=== PATIENT | male | born 1950 | race Caucasian/White ===

== ENCOUNTER 2018-10-27 22:27 | Emergency (ER) | payer MEDICARE, OTHER ==
--- NOTE | 2018-10-27 22:30 | ERPHSYRPT ---
- History of Present Illness Time Seen by Provider: 10/27/18 22:30 Historian: patient, family Exam Limitations: no limitations Physician History: 68 y/o white male with h/o atrial fibrillation on eliquis presents with central abdominal pain with radiation to bilat upper and lower quadrants. pain described as sharp pressure. did go into his back once. pain began at 1430. assoc intermittently with nausea. no vomiting or diarrhea. no prior abd surgeries. pt has had normal colonoscopies in past is scheduled for another one in early November 2018. never had this pain before. Timing/Duration: today, intermittent, improved Activities at Onset: none Quality: pressure, sharpness Abdominal Pain Onset Location: generalized abdomen Pain Radiation: RUQ, LUQ, RLQ, LLQ, back Severity of Pain-Max: moderate Severity of Pain-Current: mild Modifying Factors: Improves With: nothing Associated Symptoms: nausea, No chest pain, No diarrhea, No vomiting, No weakness Previous symptoms: no prior history Allergies/Adverse Reactions: No Known Drug Allergies Allergy (Unverified 10/27/18 22:50) Home Medications: Amlodipine Besylate 5 mg PO DAILY 10/27/18 [History] Apixaban [Eliquis] 5 mg PO BID 10/27/18 [History] Dronedarone HCl [Multaq] 400 mg PO BID 10/27/18 [History] LORazepam [Lorazepam] 1 mg PO HS 10/27/18 [History] Nebivolol HCl 5 MG [Bystolic 5 MG] 5 mg PO DAILY 10/27/18 [History] PANTOPRAZOLE 40 mg Tablet [Protonix 40MG Tablet] 40 mg PO DAILY 10/27/18 [ History] Pregabalin [Lyrica 150Mg] 150 mg PO BID 10/27/18 [History] Simvastatin 10 mg PO DAILY 10/27/18 [History] - Review of Systems Constitutional: No Symptoms Eyes: No Symptoms Ears, Nose, & Throat: No Symptoms Respiratory: No Symptoms Cardiac: No Symptoms Abdominal/Gastrointestinal: Abdominal Pain (generalized ), Nausea, No Vomiting, No Diarrhea, No Constipation Genitourinary Symptoms: No Symptoms, No Dysuria, No Frequency, No Hematuria Musculoskeletal: No Symptoms Skin: No Symptoms Neurological: No Symptoms Psychological: No Symptoms Endocrine: No Symptoms Hematologic/Lymphatic: No Symptoms Immunological/Allergic: No Symptoms All Other Systems: Reviewed and Negative - Past Medical History Pertinent Past Medical History: Yes Neurological History: No Pertinent History ENT History: No Pertinent History Cardiac History: Arrhythmia Respiratory History: No Pertinent History Endocrine Medical History: No Pertinent History Musculoskeletal History: No Pertinent History GI Medical History: No Pertinent History History: No Pertinent History Psycho-Social History: No Pertinent History Male Reproductive Disorders: No Pertinent History - Past Surgical History Neuro Surgical History: No Pertinent History Cardiac: No Pertinent History Respiratory: No Pertinent History Gastrointestinal: No Pertinent History Genitourinary: No Pertinent History Musculoskeletal: No Pertinent History Male Surgical History: No Pertinent History - Nursing Vital Signs Nursing Vital Signs: Initial Vital Signs Temperature 98.2 F 10/27/18 22:42 Pulse Rate 80 10/27/18 22:42 Respiratory Rate 18 10/27/18 22:42 Blood Pressure 151/72 10/27/18 22:42 Pain Scale Pain Intensity 3 - Physical Exam General Appearance: mild distress, alert, anxiety Eye Exam: PERRL/EOMI, eyes nml inspection Ears, Nose, Throat Exam: normal ENT inspection, moist mucous membranes Neck Exam: normal inspection, non-tender, supple, full range of motion Respiratory Exam: normal breath sounds, airway intact, No chest tenderness, No lungs clear, No respiratory distress Cardiovascular Exam: regular rate/rhythm, normal heart sounds, normal peripheral pulses Gastrointestinal/Abdomen Exam: soft, normal bowel sounds, tenderness (mild generalized.), No guarding, No rebound Rectal Exam: not done Back Exam: normal inspection, normal range of motion, No CVA tenderness, No vertebral tenderness Extremity Exam: normal inspection, normal range of motion, pelvis stable Neurologic Exam: alert, oriented x 3, cooperative, 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 nml as tested Skin Exam: normal color, warm, dry Lymphatic Exam: No adenopathy SpO2 Interpretation: normal O2 Delivery: Room Air - Course Nursing assessment & vital signs reviewed: Yes Ordered Tests: Active Orders 24 hr Category Date Time Status EKG-ER Only STAT Care 10/27/18 22:41 Active IV Insertion STAT Care 10/27/18 22:40 Active ABDOMEN AND PELVIS W/0 CONTRAS [CT] Stat Exams 10/27/18 22:41 Taken AMYLASE Stat Lab 10/27/18 23:25 Completed CBC W DIFF Stat Lab 10/27/18 23:25 Completed CMP Stat Lab 10/27/18 23:25 Completed LIPASE Stat Lab 10/27/18 23:25 Completed Lactic Acid Stat Lab 10/27/18 23:25 Results Manual Differential NC Stat Lab 10/27/18 23:25 Completed PT INR [PROTIME WITH INR] Stat Lab 10/27/18 23:25 Completed TROPONIN Q3H Lab 10/27/18 23:25 Completed TROPONIN Q3H Lab 10/28/18 01:45 Ordered TROPONIN Q3H Lab 10/28/18 04:45 Ordered TROPONIN Q3H Lab 10/28/18 07:45 Ordered TROPONIN Q3H Lab 10/28/18 10:45 Ordered UA W/RFX UR CULTURE Stat Lab 10/27/18 22:41 Uncollected Medication Summary Discontinued Medications Generic Name Dose Route Start Last Admin Trade Name Freq PRN Reason Stop Dose Admin Hydromorphone HCl 0.5 mg 10/27/18 22:45 10/27/18 23:38 Hydromorphone 1 Mg/Ml Ampule IV 10/27/18 22:46 0.5 mg STAT ONE Administration Hydromorphone HCl Confirm 10/27/18 23:35 Hydromorphone 1 Mg/Ml Ampule Administered 10/27/18 23:36 Dose 1 mg .ROUTE .STK-MED ONE Sodium Chloride 1,000 mls @ 999 mls/hr 10/27/18 22:40 10/27/18 23:33 Sodium Chloride 0.9% 1000 Ml IV 10/27/18 23:40 999 mls/hr .Q1H1M STA Administration Sodium Chloride Confirm 10/27/18 23:29 Sodium Chloride 0.9% 1000 Ml Administered 10/27/18 23:30 Dose 1,000 mls @ ud .ROUTE .STK-MED ONE Ondansetron HCl 4 mg 10/27/18 22:40 10/27/18 23:34 Zofran 4 Mg/2 Ml Vial IV 10/27/18 22:41 4 mg STAT ONE Administration Ondansetron HCl Confirm 10/27/18 23:29 Zofran 4 Mg/2 Ml Vial Administered 10/27/18 23:30 Dose 4 mg .ROUTE .STK-MED ONE Lab/Rad Data: Laboratory Result Diagrams 10/27/18 23:25 10/27/18 23:25 Laboratory Results 10/27/18 10/27/18 10/27/18 Range/Units 23:25 23:25 23:25 WBC (4.0-10.5) K/mm3 RBC (4.1-5.6) M/mm3 Hgb (12.5-18.0) gm/dl Hct (42-50) % MCV (78-100) fl MCH (26-32) pg MCHC (32-36) g/dl RDW (11.5-14.0) % Plt Count (150-450) K/mm3 MPV (6-9.5) fl PT 15.5 H (8.83-12.87) SECONDS INR 1.36 (0.8-3.0) Sodium 140 (137-145) mmol/L Potassium 4.1 (3.5-5.1) mmol/L Chloride 106 (98-107) mmol/L Carbon Dioxide 23 (22-30) mmol/L Anion Gap 14.9 (5-15) MEQ/L BUN 14 (9-20) mg/dL Creatinine 1.32 H (0.66-1.25) mg/dL Estimated GFR 57.2 ML/MIN Glucose 122 H (74-106) mg/dL Lactic Acid (0.4-2.0) Calcium 9.8 (8.4-10.2) mg/dL Total Bilirubin 2.50 H (0.2-1.3) mg/dL AST 263 H (17-59) U/L ALT 90 H (0-50) U/L Alkaline Phosphatase 137 H (38-126) U/L Troponin I < 0.012 (0.000-0.034) ng/mL Serum Total Protein 7.2 (6.3-8.2) g/dL Albumin 4.1 (3.5-5.0) g/dL Amylase 94 (30-110) U/L Lipase 113 (23-300) U/L 10/27/18 10/27/18 Range/Units 23:25 23:25 WBC 11.3 H (4.0-10.5) K/mm3 RBC 5.54 (4.1-5.6) M/mm3 Hgb 16.5 (12.5-18.0) gm/dl Hct 48.2 (42-50) % MCV 87.0 (78-100) fl MCH 29.8 (26-32) pg MCHC 34.2 (32-36) g/dl RDW 14.6 H (11.5-14.0) % Plt Count 168 (150-450) K/mm3 MPV 9.6 H (6-9.5) fl PT (8.83-12.87) SECONDS INR (0.8-3.0) Sodium (137-145) mmol/L Potassium (3.5-5.1) mmol/L Chloride (98-107) mmol/L Carbon Dioxide (22-30) mmol/L Anion Gap (5-15) MEQ/L BUN (9-20) mg/dL Creatinine (0.66-1.25) mg/dL Estimated GFR ML/MIN Glucose (74-106) mg/dL Lactic Acid 2.3 H (0.4-2.0) Calcium (8.4-10.2) mg/dL Total Bilirubin (0.2-1.3) mg/dL AST (17-59) U/L ALT (0-50) U/L Alkaline Phosphatase (38-126) U/L Troponin I (0.000-0.034) ng/mL Serum Total Protein (6.3-8.2) g/dL Albumin (3.5-5.0) g/dL Amylase (30-110) U/L Lipase (23-300) U/L - Progress Progress: improved, re-examined Progress Note: 10/28/18 00:30 pt states he is feeling very well. denies pain and denies nausea. ct abd/pelvis-equivocal right 1mm ureterolithiasis at ureterovesicular junction. diverticulosis without diverticulitis. Counseled pt/family regarding: lab results, diagnosis, need for follow-up, rad results - Departure Departure Disposition: Home Clinical Impression: Ureterolithiasis, Elevated liver enzymes Condition: Stable Critical Care Time: No Referrals: HELLEN ABAD NP [Primary Care Provider] - Additional Instructions: drink plenty of fluids. follow up with primary doctor today to arrange follow up appointment and for evaluation of hepatitis panel when it arrives next week.
[2018-10-27] MEDS ORDERED: Sodium Chloride 0.9% 1000 ML 1,000 ML IV STA (22:40)
[2018-10-27] MEDS ORDERED: Zofran 4 MG/2 ML VIAL IV ONE (22:40)
[2018-10-27] MEDS ORDERED: Hydromorphone 1 mg/ml Ampule IV ONE (22:45)
[2018-10-27] MEDS ORDERED: Zofran 4 MG/2 ML VIAL ONE (23:29)
[2018-10-27] MEDS ORDERED: Sodium Chloride 0.9% 1000 ML 1,000 ML ONE (23:29)
[2018-10-27 23:32] LABS: Hematocrit 48.2 % (42-50); Hemoglobin 16.5 gm/dl (12.5-18.0); Mean Corpuscular Hemoglobin 29.8 pg (26-32); Mean Corpuscular Hgb Concent. 34.2 g/dl (32-36); Mean Platelet Volume 9.6 fl (6-9.5); Platelet Count 168 K/mm3 (150-450); Red Blood Count 5.54 M/mm3 (4.1-5.6); Red Cell Distribution Width 14.6 % (11.5-14.0); White Blood Count 11.3 K/mm3 (4.0-10.5)
[2018-10-27] MEDS ORDERED: Hydromorphone 1 mg/ml Ampule ONE (23:35)
[2018-10-27 23:38] LABS: INR 1.36 (0.8-3.0); PROTIME 15.5 SECONDS (8.83-12.87)
[2018-10-27 23:39] LABS: Lactic Acid 2.3 (0.4-2.0)
[2018-10-27 23:44] VITALS: O2SAT 92
[2018-10-27 23:44] LABS: ALBUMIN 4.1 g/dL (3.5-5.0); ANION GAP 14.9 MEQ/L (5-15); BILIRUBIN,TOTAL 2.5 mg/dL (0.2-1.3); Calcium 9.8 mg/dL (8.4-10.2); Creatinine 1 1.32 mg/dL (0.66-1.25); Potassium 4.1 mmol/L (3.5-5.1); Total Protein 7.2 g/dL (6.3-8.2)
[2018-10-28 00:47] VITALS: BP 108/69; PULSE 85
--- NOTE | 2018-10-28 08:41 | XRAY ---
Indication: Abdominal pain. Multiple contiguous axial images obtained through the abdomen and pelvis without contrast as ordered. Comparison: None Lung bases demonstrates minimal atelectasis/scarring and tiny right lower lobe calcified granuloma. No infiltrate or effusion. Heart is not enlarged. Small hiatal hernia. Noncontrasted stomach and bowel loops appear nonobstructed. Normal appendix. Diffuse scattered colonic diverticulosis without diverticulitis. No free fluid/air. Right hip bipolar prosthesis produces beam artifact. Query right UVJ nonobstructing punctate calculus versus beam artifact. Hepatic/splenic calcified granulomas. Remaining liver, gallbladder, pancreas, spleen, adrenal glands, kidneys, ureters, and bladder appear unremarkable for noncontrast exam. Moderate aortoiliac calcifications without AAA. Osseous structures demonstrates mild/moderate degenerative changes throughout the spine. Small bilateral fatty inguinal hernias. Impression: 1. Query right UVJ nonobstructing micro-calculus versus beam artifact from right hip prosthesis. 2. Incidental colonic diverticulosis, hiatal hernia, bilateral fatty inguinal hernias, and evidence for old granulomatous disease. 3. Remaining CT abdomen/pelvis without contrast exam is negative. Comment: Preliminary interpretation was made by [facility] who does not report incidental hiatal and inguinal hernias. CT DI 19.94
[2018-10-29 04:04] LABS: HEPATITIS A IGM Non Reactive (Non Reactive); HEPATITIS B VIRUS CORE TOT AB Non Reactive (Non Reactive); HEPATITIS C VIRUS ANTIBODY Non Reactive (Non Reactive); Hepatitis B Surface Ab.Quant. <3.50 mIU/mL (0.00-8.49); Hepatitis B Surface Antigen Non Reactive (Non Reactive)
== END 2018-10-28 00:58 | disposition home or self-care (01) ==
LOC: ED 22:27
DX: N20.1 Calculus of ureter (principal); R74.8 Abnormal levels of other serum enzymes; I48.91 Unspecified atrial fibrillation; Z79.01 Long term (current) use of anticoagulants; Z79.899 Other long term (current) drug therapy
CPT/HCPCS: 36000; 36415; 74176; 80053; 80074; 82150; 83605; 83690; 84484; 85025; 85610; 93005; 96360; 96374; 96375; 99284; J1170; J2405

== ENCOUNTER 2018-11-08 13:57 | Emergency (ER) | payer MEDICARE, OTHER ==
[2018-11-08] MEDS ORDERED: Sodium Chloride 0.9% 1000 ML 1,000 ML IV SCH ×2 (14:45→19:45)
[2018-11-08] MEDS ORDERED: MORPHINE SULFATE 4 MG INJ IV ONE (14:48)
--- NOTE | 2018-11-08 14:53 | ERPHSYRPT ---
- History of Present Illness Time Seen by Provider: 11/08/18 14:50 Historian: patient Exam Limitations: no limitations Patient Subjective Stated Complaint: Was at this ER 2 weeks ago with same symptoms, pain in epigastric region, was to have a colonoscopy today but md refused due to he showed up with a fever, sent him to the ER and they did some labs and just monitored him and then released him, nausea, dry heaves, has an ultrasound for gall bladder and liver is scheduled for this Thursday, pt states that he is in too much pain and needs relief Triage Nursing Assessment: Pt walked into the ER holding his stomach, vitals wnl , rates pain 8/10, keeps stating that it just hurts, no difficulties with strength, skin dry and normal, bowel sounds heard in all 4 quadrants, Physician History: 68-year-old white male with history of atrial fibrillation arrives with complaint of pain in his epigastric region patient apparently was seen on 27 October for the same complaint he states that he was going to have a colonoscopy today but is DrLuca noticed that he had a fever and would not do the colonoscopy. He states that on going home he was having pain in the epigastric region he states he feels nauseous but is not vomiting. Past medical history includes arrhythmia. Past surgical history includes tonsillectomy and adenoidectomy and right hip surgery. Timing/Duration: today Quality: aching Abdominal Pain Onset Location: epigastric Severity of Pain-Max: moderate Severity of Pain-Current: moderate Modifying Factors: Improves With: nothing Associated Symptoms: nausea, No back, No chest pain, No diaphoresis, No diarrhea , No fever/chills, No fatigue, No headache, No heartburn, No loss of appetite, No neck pain, No rash, No shortness of breath, No syncope, No vomiting, No weakness Previous symptoms: same symptoms as today (seen seen on the October for the same) Allergies/Adverse Reactions: No Known Drug Allergies Allergy (Verified 11/08/18 14:20) Home Medications: Amlodipine Besylate 5 mg PO DAILY 10/27/18 [History] Apixaban [Eliquis] 5 mg PO BID 10/27/18 [History] Dronedarone HCl [Multaq] 400 mg PO BID 10/27/18 [History] LORazepam [Lorazepam] 1 mg PO HS 10/27/18 [History] Nebivolol HCl 5 MG [Bystolic 5 MG] 5 mg PO DAILY 10/27/18 [History] PANTOPRAZOLE 40 mg Tablet [Protonix 40MG Tablet] 40 mg PO DAILY 10/27/18 [ History] Pregabalin [Lyrica 150Mg] 150 mg PO BID 10/27/18 [History] Aspirin EC 81 mg [Ecotrin 81 mg] 81 mg PO DAILY 11/08/18 [History] - Review of Systems Constitutional: Fever (patient states he had a fever this morning) Eyes: No Symptoms Ears, Nose, & Throat: No Symptoms Respiratory: No Cough, No Dyspnea Cardiac: No Chest Pain, No Edema, No Syncope Abdominal/Gastrointestinal: Abdominal Pain (epigastric pain), Nausea, No Vomiting, No Diarrhea, No Constipation, No Hematemesis, No Hematochezia, No Melena, No Dysphagia, No Appetite Changes Genitourinary Symptoms: No Dysuria Musculoskeletal: No Back Pain, No Neck Pain Skin: No Rash Neurological: No Dizziness, No Focal Weakness, No Sensory Changes Psychological: No Symptoms Endocrine: No Symptoms All Other Systems: Reviewed and Negative - Past Medical History Pertinent Past Medical History: Yes Neurological History: No Pertinent History ENT History: No Pertinent History Cardiac History: Arrhythmia Respiratory History: No Pertinent History Endocrine Medical History: No Pertinent History Musculoskeletal History: No Pertinent History GI Medical History: No Pertinent History History: No Pertinent History Psycho-Social History: No Pertinent History Male Reproductive Disorders: No Pertinent History - Past Surgical History Past Surgical History: Yes Neuro Surgical History: No Pertinent History Cardiac: No Pertinent History Respiratory: No Pertinent History Gastrointestinal: No Pertinent History Genitourinary: No Pertinent History Musculoskeletal: No Pertinent History Male Surgical History: No Pertinent History - Social History Smoking Status: Former smoker Exposure to second hand smoke: No Drug Use: none Patient Lives Alone: No - Nursing Vital Signs Nursing Vital Signs: Initial Vital Signs Temperature 98.9 F 11/08/18 14:08 Pulse Rate 82 11/08/18 14:08 Blood Pressure 132/70 11/08/18 14:08 O2 Sat by Pulse Oximetry 91 L 11/08/18 14:08 Pain Scale Pain Intensity 5 - Physical Exam General Appearance: mild distress, alert Eye Exam: PERRL/EOMI, eyes nml inspection Ears, Nose, Throat Exam: normal ENT inspection, pharynx normal, moist mucous membranes Neck Exam: normal inspection, non-tender, supple, full range of motion Respiratory Exam: normal breath sounds, lungs clear, No respiratory distress Cardiovascular Exam: regular rate/rhythm, normal heart sounds, capillary refill <2 sec Gastrointestinal/Abdomen Exam: soft, normal bowel sounds, tenderness ( epigastric tenderness), No distention, No mass, No guarding, No ecchymosis, No pulsatile mass, No rebound, No hernia, No hepatomegaly, No organomegaly, No splenomegaly, No bruit Back Exam: normal inspection, normal range of motion, No CVA tenderness, No vertebral tenderness Extremity Exam: normal inspection, normal range of motion, pelvis stable Neurologic Exam: alert, oriented x 3, cooperative, analysis internship II-XII nml as tested, normal mood/affect, nml cerebellar function, sensation nml, No motor deficits Skin Exam: normal color, warm, dry SpO2 Interpretation: normal (94%) SpO2: 94 - Course Nursing assessment & vital signs reviewed: Yes EKG Interpreted by Me: RATE (79 bpm), Sinus Rhythm, Other (EKG: Sinus rhythmwith PAC, 79 beats per minute, axis SI/QIII pattern, no acute ST or T wave changes) - Radiology Ultrasound Exam Gallbladder Ultrasound: discussed w/radiologist (CT gallbladder and liver colon impression 1. The liver appears essentially unremarkable. The technologist left a note that evaluation was technically challenging due to tenderness to transducer compression and increased bowel gas. 2. The gallbladder is elongated, but reveals no definite cholelithiasis or gallbladder wall thickening.3. Do, and bowel Dr. measures 0.7 this centimeters in diameter which is borderline enlarged. The significance of this is uncertain. The remainder of the right upper quadrant abdominal ultrasound appears unremarkable.) Ordered Tests: Active Orders 24 hr Category Date Time Status EKG-ER Only STAT Care 11/08/18 14:35 Active IV Insertion STAT Care 11/08/18 14:35 Active IV Insertion-2nd Peripheral STAT Care 11/08/18 18:37 Active NPO (ED) STAT Care 11/08/18 14:35 Active Pulse Oximetry (ED) STAT Care 11/08/18 14:35 Active ABDOMEN AND PELVIS W/0 CONTRAS [CT] Stat Exams 11/08/18 18:42 Taken GALLBLADDER [US] Stat Exams 11/08/18 17:02 Completed AMYLASE Stat Lab 11/08/18 14:55 Completed BLOOD CULTURE Stat Lab 11/08/18 18:55 Received CBC W DIFF Stat Lab 11/08/18 14:55 Completed CMP Stat Lab 11/08/18 14:55 Completed CULTURE,URINE Stat Lab 11/08/18 15:30 Received LIPASE Stat Lab 11/08/18 14:55 Completed Lactic Acid Stat Lab 11/08/18 18:28 Results PROTIME WITH INR Stat Lab 11/08/18 14:55 Completed PTT Stat Lab 11/08/18 14:55 Completed TROPONIN Q3H Lab 11/08/18 14:55 Completed TROPONIN Q3H Lab 11/09/18 02:45 Ordered UA W/RFX UR CULTURE Stat Lab 11/08/18 15:30 Completed Medication Summary Generic Name Dose Route Start Last Admin Trade Name Freq PRN Reason Stop Dose Admin Sodium Chloride 1,000 mls @ 100 mls/hr 11/08/18 14:45 11/08/18 18:42 Sodium Chloride 0.9% 1000 Ml IV 12/08/18 14:44 Infused .Q10H LUCILA Infusion Discontinued Medications Generic Name Dose Route Start Last Admin Trade Name Freq PRN Reason Stop Dose Admin Acetaminophen 975 mg 11/08/18 18:22 11/08/18 18:25 Feverall 650 Mg TN 11/08/18 18:23 975 mg STAT ONE Administration Acetaminophen Confirm 11/08/18 18:22 Feverall 325 Mg Administered 11/08/18 18:23 Dose 975 mg .ROUTE .STK-MED ONE Ceftriaxone Sodium/Dextrose 1 g in 50 mls @ 100 mls/hr 11/08/18 18:20 19:11 Rocephin 1 Gm-D5w 50 Ml Bag IV 11/08/18 18:49 100 ml/hr STAT STA 100 mls/hr Administration Sodium Chloride 1,000 mls @ 999 mls/hr 11/08/18 18:24 11/08/18 19:11 Sodium Chloride 0.9% 1000 Ml IV 11/08/18 19:24 999 mls/hr .Q1H1M STA Administration Ceftriaxone Sodium/Dextrose Confirm 11/08/18 18:46 Rocephin 1 Gm-D5w 50 Ml Bag Administered 11/08/18 18:47 Dose 1 g in 50 mls @ ud IV .STK-MED ONE Morphine Sulfate 4 mg 11/08/18 14:48 11/08/18 15:03 Morphine Sulfate 4 Mg Inj IV 11/08/18 14:49 4 mg STAT ONE Administration Morphine Sulfate Confirm 11/08/18 15:01 Morphine Sulfate 4 Mg Inj Administered 11/08/18 15:02 Dose 4 mg .ROUTE .STK-MED ONE Lab/Rad Data: Laboratory Result Diagrams 11/08/18 14:55 11/08/18 14:55 Laboratory Results 11/08/18 11/08/18 11/08/18 Range/Units 18:28 15:30 14:55 WBC (4.0-10.5) K/mm3 RBC (4.1-5.6) M/mm3 Hgb (12.5-18.0) gm/dl Hct (42-50) % MCV (78-100) fl MCH (26-32) pg MCHC (32-36) g/dl RDW (11.5-14.0) % Plt Count (150-450) K/mm3 MPV (6-9.5) fl Gran % (36.0-66.0) % Eos # (Auto) (0-0.5) Absolute Lymphs (auto) (1.0-4.6) Absolute Monos (auto) (0.0-1.3) Lymphocytes % (24.0-44.0) % Monocytes % (0.0-12.0) % Eosinophils % (0.00-5.0) % Basophils % (0.0-0.4) % Absolute Granulocytes (1.4-6.9) Basophils # (0-0.4) PT (8.83-12.87) SECONDS INR (0.8-3.0) APTT (24.1-36.1) SECONDS Sodium (137-145) mmol/L Potassium (3.5-5.1) mmol/L Chloride (98-107) mmol/L Carbon Dioxide (22-30) mmol/L Anion Gap (5-15) MEQ/L BUN (9-20) mg/dL Creatinine (0.66-1.25) mg/dL Estimated GFR ML/MIN Glucose (74-106) mg/dL Lactic Acid 3.3 H (0.4-2.0) Calcium (8.4-10.2) mg/dL Total Bilirubin (0.2-1.3) mg/dL AST (17-59) U/L ALT (0-50) U/L Alkaline Phosphatase (38-126) U/L Troponin I (0.000-0.034) ng/mL Serum Total Protein (6.3-8.2) g/dL Albumin (3.5-5.0) g/dL Amylase 64 (30-110) U/L Lipase 50 (23-300) U/L Urine Color FERMÍN (YELLOW) Urine Appearance SLIGHTLY CLOUDY (CLEAR) Urine pH 5.0 (5-6) Ur Specific Seguin 1.023 (1.005-1.025) Urine Protein 30 (Negative) Urine Ketones TRACE (NEGATIVE) Urine Blood SMALL (0-5) Mandeep/ul Urine Nitrite NEGATIVE (NEGATIVE) Urine Bilirubin SMALL (NEGATIVE) Urine Urobilinogen 2 (0-1) mg/dL Ur Leukocyte Esterase NEGATIVE (NEGATIVE) Urine WBC (Auto) 11-15 (0-5) /HPF Urine RBC (Auto) NONE (0-2) /HPF U Epithel Cells (Auto) NONE (FEW) /HPF Urine Bacteria (Auto) RARE (NEGATIVE) /HPF Urine Mucus (Auto) MANY (NEGATIVE) /HPF Urine Culture Reflexed YES (NO) Urine Glucose NEGATIVE (NEGATIVE) mg/dL Slides for Path Review 11/08/18 11/08/18 11/08/18 Range/Units 14:55 14:55 14:55 WBC (4.0-10.5) K/mm3 RBC (4.1-5.6) M/mm3 Hgb (12.5-18.0) gm/dl Hct (42-50) % MCV (78-100) fl MCH (26-32) pg MCHC (32-36) g/dl RDW (11.5-14.0) % Plt Count (150-450) K/mm3 MPV (6-9.5) fl Gran % (36.0-66.0) % Eos # (Auto) (0-0.5) Absolute Lymphs (auto) (1.0-4.6) Absolute Monos (auto) (0.0-1.3) Lymphocytes % (24.0-44.0) % Monocytes % (0.0-12.0) % Eosinophils % (0.00-5.0) % Basophils % (0.0-0.4) % Absolute Granulocytes (1.4-6.9) Basophils # (0-0.4) PT 14.3 H (8.83-12.87) SECONDS INR 1.26 (0.8-3.0) APTT 28.6 (24.1-36.1) SECONDS Sodium 137 (137-145) mmol/L Potassium 3.6 (3.5-5.1) mmol/L Chloride 103 (98-107) mmol/L Carbon Dioxide 22 (22-30) mmol/L Anion Gap 15.1 H (5-15) MEQ/L BUN 15 (9-20) mg/dL Creatinine 1.38 H (0.66-1.25) mg/dL Estimated GFR 54.3 ML/MIN Glucose 146 H (74-106) mg/dL Lactic Acid (0.4-2.0) Calcium 9.2 (8.4-10.2) mg/dL Total Bilirubin 6.30 H (0.2-1.3) mg/dL AST 160 H (17-59) U/L ALT 86 H (0-50) U/L Alkaline Phosphatase 140 H (38-126) U/L Troponin I < 0.012 (0.000-0.034) ng/mL Serum Total Protein 7.2 (6.3-8.2) g/dL Albumin 3.9 (3.5-5.0) g/dL Amylase (30-110) U/L Lipase (23-300) U/L Urine Color (YELLOW) Urine Appearance (CLEAR) Urine pH (5-6) Ur Specific Seguin (1.005-1.025) Urine Protein (Negative) Urine Ketones (NEGATIVE) Urine Blood (0-5) Mandeep/ul Urine Nitrite (NEGATIVE) Urine Bilirubin (NEGATIVE) Urine Urobilinogen (0-1) mg/dL Ur Leukocyte Esterase (NEGATIVE) Urine WBC (Auto) (0-5) /HPF Urine RBC (Auto) (0-2) /HPF U Epithel Cells (Auto) (FEW) /HPF Urine Bacteria (Auto) (NEGATIVE) /HPF Urine Mucus (Auto) (NEGATIVE) /HPF Urine Culture Reflexed (NO) Urine Glucose (NEGATIVE) mg/dL Slides for Path Review 11/08/18 Range/Units 14:55 WBC 17.7 H (4.0-10.5) K/mm3 RBC 5.66 H (4.1-5.6) M/mm3 Hgb 16.7 (12.5-18.0) gm/dl Hct 48.6 (42-50) % MCV 85.9 (78-100) fl MCH 29.5 (26-32) pg MCHC 34.4 (32-36) g/dl RDW 14.7 H (11.5-14.0) % Plt Count 188 (150-450) K/mm3 MPV 9.1 (6-9.5) fl Gran % 94.7 H (36.0-66.0) % Eos # (Auto) 0.01 (0-0.5) Absolute Lymphs (auto) 0.21 L (1.0-4.6) Absolute Monos (auto) 0.68 (0.0-1.3) Lymphocytes % 1.2 L (24.0-44.0) % Monocytes % 3.9 (0.0-12.0) % Eosinophils % 0.1 (0.00-5.0) % Basophils % 0.1 (0.0-0.4) % Absolute Granulocytes 16.74 H (1.4-6.9) Basophils # 0.01 (0-0.4) PT (8.83-12.87) SECONDS INR (0.8-3.0) APTT (24.1-36.1) SECONDS Sodium (137-145) mmol/L Potassium (3.5-5.1) mmol/L Chloride (98-107) mmol/L Carbon Dioxide (22-30) mmol/L Anion Gap (5-15) MEQ/L BUN (9-20) mg/dL Creatinine (0.66-1.25) mg/dL Estimated GFR ML/MIN Glucose (74-106) mg/dL Lactic Acid (0.4-2.0) Calcium (8.4-10.2) mg/dL Total Bilirubin (0.2-1.3) mg/dL AST (17-59) U/L ALT (0-50) U/L Alkaline Phosphatase (38-126) U/L Troponin I (0.000-0.034) ng/mL Serum Total Protein (6.3-8.2) g/dL Albumin (3.5-5.0) g/dL Amylase (30-110) U/L Lipase (23-300) U/L Urine Color (YELLOW) Urine Appearance (CLEAR) Urine pH (5-6) Ur Specific Seguin (1.005-1.025) Urine Protein (Negative) Urine Ketones (NEGATIVE) Urine Blood (0-5) Mandeep/ul Urine Nitrite (NEGATIVE) Urine Bilirubin (NEGATIVE) Urine Urobilinogen (0-1) mg/dL Ur Leukocyte Esterase (NEGATIVE) Urine WBC (Auto) (0-5) /HPF Urine RBC (Auto) (0-2) /HPF U Epithel Cells (Auto) (FEW) /HPF Urine Bacteria (Auto) (NEGATIVE) /HPF Urine Mucus (Auto) (NEGATIVE) /HPF Urine Culture Reflexed (NO) Urine Glucose (NEGATIVE) mg/dL Slides for Path Review YES - Progress Progress: improved Progress Note: 11/08/18 18:22 Notified by the nurse it patient's temperature is now 104. Blood cultures are ordered Rocephin 1 g IV has been ordered. CT of the abdomen has been ordered. 11/08/18 18:24 Additional IV normal saline has been ordered. 11/08/18 19:[address] of the abdomen remarkable for question acute cholecystitis diverticular disease of the colon without evidence of acute diverticulitis patient with a lactate of 3.3 patient's troponin within normal limits EKG sinus rhythm 79 beats per minute axis S1/every [address] or T wave changes patient's urinalysis 11-15 white cells per high-power field negative nitrites 30 protein patient's white cells 17.7 hemoglobin 16.7 hematocrit 48.6 platelets 188 amylase is 64 lipase 50 Chemistry sodium 137 potassium 3.6 chloride 103 bicarbonate 2 BUN 15 creatinine 1.38 glucose 146 total bilirubin is increased at 6.3 AST 160 ALT 86 alkaline phosphatase 140 anion gap 15.1 INR is 1.26 Patient is given 2 L normal saline he has been switched to normal saline at 100 mL per hour he was given morphine 4 mg IV. He was given Rocephin 1 g IV. patient was also given Tylenol 975 mg rectally Patient is feeling better I've discussed the case with Dr. mcpherson with at [facility] will transfer patient Diagnosis epigastric pain. Acute cholecystitis. Rule out common bile duct stone. fever 11/08/18 19:44 11/08/18 19:45 - Departure Departure Disposition: Transfer ([facility]) Clinical Impression: Epigastric abdominal pain, Acute cholecystitis, rule out common bile duct stone Fever Qualifiers: Fever type: unspecified Qualified Code(s): R50.9 - Fever, unspecified Condition: Fair Critical Care Time: No Referrals: [facility]LL[facility] [facility] [Primary Care Provider] -
[2018-11-08 15:00] LABS: BASOPHIL % 0.1 % (0.0-0.4); Basophil (Absolute #) 0.01 (0-0.4); Eosinophil % 0.1 % (0.00-5.0); Eosinophil (Absolute #) 0.01 (0-0.5); Granulocyte Absolute (ANC) 16.74 (1.4-6.9); Granulocytes % 94.7 % (36.0-66.0); Hematocrit 48.6 % (42-50); Hemoglobin 16.7 gm/dl (12.5-18.0); Lymphocyte (Absolute #) 0.21 (1.0-4.6); Lymphocytes % 1.2 % (24.0-44.0); Mean Cell Volume 85.9 fl (78-100); Mean Corpuscular Hemoglobin 29.5 pg (26-32); Mean Corpuscular Hgb Concent. 34.4 g/dl (32-36); Mean Platelet Volume 9.1 fl (6-9.5); Monocyte (Absolute #) 0.68 (0.0-1.3); Monocytes % 3.9 % (0.0-12.0); Platelet Count 188 K/mm3 (150-450); Red Blood Count 5.66 M/mm3 (4.1-5.6); Red Cell Distribution Width 14.7 % (11.5-14.0); White Blood Count 17.7 K/mm3 (4.0-10.5)
[2018-11-08] MEDS ORDERED: MORPHINE SULFATE 4 MG INJ ONE (15:01)
[2018-11-08] MEDS ORDERED: Sodium Chloride 0.9% 1000 ML 1,000 ML ONE ×3 (15:01→20:31)
[2018-11-08 15:05] LABS: INR 1.26 (0.8-3.0); PROTIME 14.3 SECONDS (8.83-12.87)
[2018-11-08 15:07] LABS: PTT 28.6 SECONDS (24.1-36.1)
[2018-11-08 15:10] LABS: ALBUMIN 3.9 g/dL (3.5-5.0); AMYLASE 64 U/L (30-110); ANION GAP 15.1 MEQ/L (5-15); BILIRUBIN,TOTAL 6.3 mg/dL (0.2-1.3); Calcium 9.2 mg/dL (8.4-10.2); Creatinine 1 1.38 mg/dL (0.66-1.25); Potassium 3.6 mmol/L (3.5-5.1); Total Protein 7.2 g/dL (6.3-8.2)
[2018-11-08 15:44] LABS: Appearance SLIGHTLY CLOUDY (CLEAR); Bacteria RARE /HPF (NEGATIVE); Bilirubin SMALL (NEGATIVE); Blood SMALL Ery/ul (0-5); Glucose NEGATIVE (NEGATIVE); Ketones TRACE (NEGATIVE); Leukocyte Esterase NEGATIVE (NEGATIVE); Mucus MANY /HPF (NEGATIVE); Nitrite NEGATIVE (NEGATIVE); Protein,Urine Dip 30 (Negative); Specific Gravity 1.023 (1.005-1.025); Urobilinogen 2 mg/dL (0-1)
--- NOTE | 2018-11-08 17:50 | XRAY ---
Exam: Right upper quadrant abdominal ultrasound including the gallbladder and liver from 11/08/2018. Comparison: CT of the abdomen and pelvis without IV contrast 10/27/2018. Indication: 68-year-old male with increased epigastric abdominal pain and fever. Findings: The mri special procedures technologist left a note that evaluation of the liver was technically difficult due to patient tenderness to transducer pressure and increased bowel gas. The liver appears of unremarkable size. It measures 17.2 cm in length. No focal liver mass or definite intraluminal biliary duct distention is seen. There is a normal portal vein blood flow toward the liver with color-flow imaging. The gallbladder appears mildly elongated but reveals no definite calcifications within it. Gallbladder wall thickness is 1.5 mm which is normal. No pericholecystic edema or fluid is seen. The proximal common bile duct measures 0.7 cm which is borderline enlarged. No free fluid is seen within the right upper quadrant. The pancreas is partially obscured by overlying bowel gas. No gross abnormality is seen. The right kidney measures 10.3 cm in length and reveals no solid renal mass or hydronephrosis. The mri special procedures technologist saw a small non-shadowing hyperechoic density within the inferior pole of the right kidney. No calcification is seen in this projection on the recent CT scan from 10/27/2018. This is nonspecific. Impression: 1. The liver appears essentially unremarkable. The technologist left a note that evaluation was technically challenging due to tenderness to transducer compression and increased bowel gas. 2. The gallbladder is elongated, but reveals no definite cholelithiasis or gallbladder wall thickening. 3. The common bile duct measures 0.7 cm in diameter which is borderline enlarged. The significance of this is uncertain. 4. The remainder of the right upper quadrant abdominal ultrasound appears unremarkable.
[2018-11-08] MEDS ORDERED: ROCEPHIN 1 Gm-D5w 50 ml Bag** 1 G/50 ML IVPB IV STA (18:20)
[2018-11-08] MEDS ORDERED: FEVERALL 650 MG PR ONE (18:22)
[2018-11-08] MEDS ORDERED: FEVERALL 325 MG ONE (18:22)
[2018-11-08] MEDS ORDERED: Sodium Chloride 0.9% 1000 ML 1,000 ML IV STA (18:24)
[2018-11-08 18:34] LABS: Lactic Acid 3.3 (0.4-2.0)
[2018-11-08] MEDS ORDERED: ROCEPHIN 1 Gm-D5w 50 ml Bag** 1 G/50 ML IVPB IV ONE (18:46)
[2018-11-08 19:15] VITALS: PULSE 84
--- NOTE | 2018-11-08 20:22 | XRAY ---
Exam: CT of the abdomen and pelvis without IV contrast from 11/08/2018. CTDI: 21.12 Comparison: CT of the abdomen and pelvis without IV contrast from 10/27/2018. Indication: 58-year-old male with left-sided abdominal pain, fever, abdominal distention, history of "stones", prior right hip surgery. Technique: Non-IV contrast axial images were obtained through the abdomen and pelvis. Reconstructed coronal and sagittal images were created and reviewed. Findings: The lung bases reveal a couple small calcified granulomas at the right lung base and one moderate-sized calcified granuloma at the anterior left lung base. Minimal atelectatic changes are seen at the posterior aspect of both lung bases. I again see a small hiatal hernia representing no change. The liver is of unremarkable size. A few scattered calcified granulomas are seen within the liver representing no change. Otherwise, the liver attenuation is relatively uniform and unchanged from 10/27/2018. The gallbladder appears elongated and measures a maximum of 4.1 cm in width which is within normal limits. I see no definite gallbladder wall thickening. No definite calcifications are seen within the gallbladder lumen. These findings are unchanged from 10/27/2018. The spleen is of normal size and reveals multiple calcified granulomas within it consistent with remote granulomatous disease. A small amount of oral contrast or medication is seen within the stomach lumen. The pancreas reveals no mass, duct distention, or inflammatory changes. I believe there is mild hypertrophy of the adrenal glands, a bit more prominent on the left than right. This is unchanged from 10/27/2018. The kidneys are unremarkable size and shape. Mild bilateral perirenal stranding is seen representing no change. No renal calculi or hydronephrosis is seen. No gross renal mass is seen. Tortuosity and moderate atherosclerotic vascular calcification is seen within the abdominal aorta and iliac arteries. There is no evidence of abdominal aortic aneurysm or abnormal retroperitoneal lymphadenopathy. There is no free intraperitoneal air. A small fat-containing umbilical hernia is seen representing no change. Abundant intraperitoneal fat is evident. I see no evidence of bowel distention to suggest bowel obstruction. No bowel wall thickening is seen. Scattered diverticula are seen throughout the colon consistent with diverticulosis without evidence of acute diverticulitis. There are no findings of acute appendicitis within the right lower quadrant. On axial image #66, there is a tiny calcification within the appendix which may represent an appendicolith. This is not definitely seen on the prior CT study from 10/27/2018. No surrounding inflammation or edema/fluid is seen. The urinary bladder and seminal vesicles appear unremarkable. The prostate gland is mildly enlarged measuring 5.35 cm in width. Calcified phleboliths are seen within the lower pelvis bilaterally. There are moderate-sized bilateral fat-containing inguinal hernias. No abnormal lymphadenopathy is seen within either groin. No enlarged pelvic lymph nodes are seen. Moderate atherosclerotic vascular calcification is seen within the common femoral arteries. Artifactual streaking from a right hip arthroplasty is seen. I see no acute fracture or aggressive bone lesion. Moderate degenerative changes are seen throughout the lumbar spine. I believe there is a small Schmorl's node at the anterior superior margin of the L2 vertebral body representing no change. Mild degenerative disc disease at L3-L4 and L4-L5, and moderate degenerative disc disease at L5-S1 are seen representing no change. Mild degenerative changes are seen within the left hip joint, stable. Impression: 1. There is evidence of old healed granulomatous disease, a small hiatal hernia, a small fat-containing umbilical hernia, and moderate sized bilateral fat-containing inguinal hernias. These findings are unchanged from 10/27/2018. 2. Mild to moderate diverticulosis of the colon without evidence of acute diverticulitis. 3. Mild enlargement of the prostate gland, stable. 4. Status post right hip arthroplasty. 5. The gallbladder is elongated representing no change. However, there is no increased width of the gallbladder lumen or definite intraluminal gallstones seen. No definite biliary duct duct distention is evident. 6. The adrenal glands appear mildly prominent bilaterally, left slightly greater than right. This may be due to some adrenal gland hypertrophy. This is also stable. 7. No findings of acute appendicitis are seen. However, there is a tiny calcification within the appendix on axial image #66 which may represent a small appendicolith.
[2018-11-08 20:35] VITALS: BP 111/64; O2SAT 91
== END 2018-11-08 20:33 | disposition short-term general hospital (02) ==
LOC: ED 13:57
DX: R10.13 Epigastric pain (principal); K81.0 Acute cholecystitis; R50.9 Fever, unspecified; I48.91 Unspecified atrial fibrillation; Z79.01 Long term (current) use of anticoagulants; Z79.899 Other long term (current) drug therapy
CPT/HCPCS: 36000; 36415; 74176; 76705; 80053; 81001; 82150; 83605; 83690; 84484; 85025; 85610; 85730; 87040; 87077; 87086; 87186; 93005; 94760; 96360; 96361; 96374; 99285; J0696; J2270; A9270-GY

== ENCOUNTER 2022-04-10 07:58 | Day surgery (SDC) | payer MEDICARE, OTHER ==
--- NOTE | 2022-04-09 11:21 | HP ---
DATE OF SURGERY: 04/10/2022 HISTORY OF PRESENT ILLNESS: The patient is a 71-year-old male who presented with history of colon polyp. Last colonoscopy about four years ago. No immediate family history of colon cancer. He complains of some gas pain. He complains of heartburn. He is on a prescription proton pump inhibitor. He is having a lot of left upper quadrant pain with eating. PAST MEDICAL HISTORY: Hypertension, reflux, hyperlipidemia, atrial fibrillation, arthritis. PAST SURGICAL HISTORY: Right hip replacement. Cataracts. Cholecystectomy. ALLERGIES: NKDA. MEDICATIONS: Pravastatin, testosterone, lorazepam, pantoprazole, Lyrica, amlodipine, lisinopril, Bystolic, Eliquis, Multaq. FAMILY HISTORY: Diabetes, heart disease, arthritis. SOCIAL HISTORY: Former smoker, occasional alcohol. REVIEW OF SYSTEMS: CONSTITUTIONAL: Denies fever or chills. CHEST: Denies shortness of breath. CVS: Denies chest pain. ABDOMEN: Denies abdominal pain. PHYSICAL EXAMINATION: GENERAL: No acute distress. CHEST: Nonlabored. No shortness of breath. CVS: Regular rate and rhythm. ABDOMEN: Soft. IMPRESSION: Dysphagia, heartburn, history of colon polyps. PLAN: EGD with possible dilatation and colonoscopy with Dr. Flash Osborne. As dictated by Janneth Rawls NP.
[2022-04-10] MEDS ORDERED: Lactated Ringers 1,000 ML IV SCH (08:30)
[2022-04-10] MEDS ORDERED: Xylocaine-Mpf 2% 5 Ml Vial ONE (10:07)
[2022-04-10] MEDS ORDERED: DIPRIVAN 200 MG/20 ML IV ONE ×2 (10:07→10:23)
[2022-04-10] MEDS ORDERED: ATROPINE SULFATE 1MG ONE (10:27)
--- NOTE | 2022-04-10 11:46 | OP ---
SURGERY DATE/TIME: 04/10/2022 1011 PREOPERATIVE DIAGNOSES: 1) Dysphagia. 2) Heartburn. 3) History of colon polyps. POSTOPERATIVE DIAGNOSES: 1) Grade 2 gastroesophageal reflux disease. 2) Mild esophagitis. 3) Schatzki ring. 4) Stricture size 40. 5) Moderate sigmoid diverticulosis. PROCEDURES: 1) EGD with cold biopsy of antrum. 2) Esophageal dilatation with Kyle from base size of 40 to size 48. 3) Colonoscopy complete to cecum with no polyps. SURGEON: Flash Osborne M.D. AVIONICS INTEGRATION ENGINEER: Roe Saba D.O. ANESTHESIA: MAC. COMPLICATIONS: None. CONDITION: Stable. DESCRIPTION OF PROCEDURE: Patient taken to endoscopy. MAC sedation provided. Scope introduced. Pharyngoesophageal junction satisfactory. Esophagus satisfactory. Grade 2 over 4 gastroesophageal reflux disease, Schatzki's ring, stricture about size 40. There was esophageal reflux with bile and the bile was up in the upper fundus and gastroesophageal junction. A bilingual sales representative biopsy of the antrum. Duodenum satisfactory. Duodenal bulb, second portion satisfactory. Scope looped upon itself. A 1 inch hiatal hernia. Scope withdrawn. Anal digital examination satisfactory. Prostate satisfactory. Scope advanced to the cecum. Base of the cecum, ileocecal valve, appendiceal orifice satisfactory. Ascending, hepatic, transverse, splenic, descending, severe sigmoid diverticulosis. There were some scattered other diverticulosis rectum, anus. PLAN: He will need follow up EGD. He is not in need of immediate follow up of colonoscopy. We have changed his medications and included a small dose of Reglan and we will see how he does.
[2022-04-10 11:48] VITALS: BP 147/75; PULSE 56; O2SAT 93
== END 2022-04-10 11:40 | disposition home or self-care (01) ==
LOC: SDC 07:58
PROVIDERS: ATTEND Surgery
DX: Z08 Encounter for follow-up examination after completed treatment for malignant neoplasm (principal); Z86.010 Personal history of colon polyps; K21.9 Gastro-esophageal reflux disease without esophagitis; R12 Heartburn; R13.10 Dysphagia, unspecified; K20.90 Esophagitis, unspecified without bleeding; K22.2 Esophageal obstruction; K57.30 Diverticulosis of large intestine without perforation or abscess without bleeding
CPT/HCPCS: 99100; J0461; J2704

== ENCOUNTER 2022-07-03 06:54 | Day surgery (SDC) | payer MEDICARE, OTHER ==
--- NOTE | 2022-07-02 09:16 | HP ---
DATE OF SURGERY: 07/03/2022 HISTORY OF PRESENT ILLNESS: The patient presents for follow up EGD. It looks like the patient was dilated 40 to 48 back in April. He is having some dysphagia currently. He has a chronic stricture. Will proceed with another dilatation. PAST MEDICAL HISTORY: Atrial fibrillation, gastroesophageal reflux disease, arthritis, hypertension, hyperlipidemia, anxiety. PAST SURGICAL HISTORY: Cataracts. T&A. Cholecystectomy. Hip replacement. ALLERGIES: NKDA. MEDICATIONS: Pravastatin, testosterone, lorazepam, pantoprazole, Lyrica, amlodipine, lisinopril, Bystolic, Eliquis, Multaq. FAMILY HISTORY: Diabetes, heart disease. SOCIAL HISTORY: Occasional alcohol. REVIEW OF SYSTEMS: CONSTITUTIONAL: Denies fever or chills. CHEST: Denies shortness of breath. CVS: Denies chest pain. ABDOMEN: Denies abdominal pain. PHYSICAL EXAMINATION: GENERAL: No acute distress. CHEST: Nonlabored. No shortness of breath. CVS: Regular rate and rhythm. ABDOMEN: Soft. IMPRESSION: Dysphagia. PLAN: EGD with possible dilatation with Dr. Flash Osborne. As dictated by Janneth Rawls NP.
[2022-07-03] MEDS ORDERED: Lactated Ringers 1,000 ML IV ONE (07:23)
[2022-07-03] MEDS ORDERED: Lactated Ringers 1,000 ML IV SCH (07:30)
[2022-07-03] MEDS ORDERED: Xylocaine-Mpf 2% 5 Ml Vial ONE (10:34)
[2022-07-03] MEDS ORDERED: DIPRIVAN 200 MG/20 ML IV ONE (10:35)
[2022-07-03] MEDS ORDERED: Versed 2 MG/2 ML Injection ONE (10:35)
[2022-07-03 11:42] VITALS: BP 158/84; PULSE 57; O2SAT 92
--- NOTE | 2022-07-03 13:32 | OP ---
SURGERY DATE/TIME: 07/03/2022 1038 PREOPERATIVE DIAGNOSIS: Follow up of chronic stricture. POSTOPERATIVE DIAGNOSES: 1) Chronic esophageal gastric stricture. 2) Chronic gastritis of the antrum. PROCEDURE: EGD with dilatation of the gastroesophageal junction. SURGEON: Flash Osborne M.D. ANESTHESIA: MAC. COMPLICATIONS: None. CONDITION: Stable. INDICATION: A patient requiring chronic dilatation of the gastroesophageal junction as he had a chronic stricture there. He has had lots of PEG tubes, gastric tubes. He has had upper head and neck surgery. DESCRIPTION OF PROCEDURE: He was taken to the endoscopy room. Left lateral decubitus position. Scope introduced. Scope was able to be gotten to the pharyngoesophageal junction. Esophagus normal down to gastroesophageal junction. There was chronic esophagitis grade 2/4. There was chronic stricture here. Fundus and body was normal. In the antrum there was chronic gastritis. Pylorus satisfactory. Duodenal bulb satisfactory. Second portion satisfactory. Scope withdrawn looped upon itself. No hiatal hernia. The size 54 dilator was placed and the scope was placed back and it looks very satisfactory. IMPRESSION: The patient currently has a size 54 gastroesophageal junction. We will move him from two to three months to six months. We will do a follow up EGD with dilatation in six months.
== END 2022-07-03 11:45 | disposition home or self-care (01) ==
LOC: SDC 06:54
PROVIDERS: ATTEND Surgery
DX: K29.50 Unspecified chronic gastritis without bleeding (principal); K22.2 Esophageal obstruction
CPT/HCPCS: 93005; J2250; J2704

== ENCOUNTER 2023-08-29 14:27 | Emergency (ER) | payer MEDICARE ==
--- NOTE | 2023-08-29 14:37 | ERPHSYRPT ---
- History of Present Illness Time Seen by Provider: 08/29/23 14:36 Source: patient, family Exam Limitations: no limitations Physician History: This is a 72-year-old white male patient of Dr. Hernandez who presents to the emergency department by private vehicle secondary to an episode of dizziness and lightheadedness that occurred today after looking optic placed something in a cabinet. Immediately he felt very weak and fell into the wall. He did not lose consciousness. He denies hitting his head. Patient denies shortness of breath. Patient denies headache. Patient denies chest pain. Patient has not had any visual changes. He denies nausea vomiting and diarrhea symptoms. The symptoms have resolved and at the time of the examination he does not have any specific complaints. He was placed on Diflucan recently to treat thrush. Patient has a history of hyperlipidemia, gastroesophageal reflux disease, hypertension. He does have a history of atrial fibrillation and is on Eliquis. Timing/Duration: today Severity: mild Character of Deficits: none Deficits: no difficulties Baseline/Normal Cognition: alert oriented x 3 Current Cognition: alert oriented x 3 Baseline Gait: walks w/o assistance Associated Symptoms: denies symptoms Allergies/Adverse Reactions: No Known Drug Allergies Allergy (Verified 08/29/23 14:48) Home Medications: Amlodipine Besylate 5 mg PO DAILY 10/27/18 [History] Dronedarone HCl [Multaq] 400 mg PO BID 10/27/18 [History] LORazepam [Lorazepam] 1 mg PO HS 10/27/18 [History] Nebivolol HCl 5 MG [Bystolic 5 MG] 5 mg PO DAILY 10/27/18 [History] PANTOPRAZOLE 40 mg Tablet [Protonix 40MG Tablet] 40 mg PO DAILY 10/27/18 [History] Pregabalin [Lyrica 150Mg] 150 mg PO BID 10/27/18 [History] Lisinopril 20 mg [Zestril 20 MG] 40 mg PO DAILY 04/04/22 [History] Pravastatin Sodium 40 mg PO DAILY 04/04/22 [History] Testosterone Cypionate 0.5 mg IM UD 04/04/22 [History] Travel Risk - International Travel Have you traveled outside of the country in past 3 weeks: No - Emerging Infectious Disease Are you exhibiting symptoms associated with any current EIDs: No - Review of Systems Constitutional: No Symptoms Eyes: No Symptoms Ears, Nose, & Throat: No Symptoms Respiratory: No Symptoms Cardiac: No Symptoms Abdominal/Gastrointestinal: No Symptoms Genitourinary Symptoms: No Symptoms Musculoskeletal: No Symptoms Skin: No Symptoms Neurological: Dizziness (Now resolved) Psychological: No Symptoms Endocrine: No Symptoms Hematologic/Lymphatic: No Symptoms Immunological/Allergic: No Symptoms All Other Systems: Reviewed and Negative - Past Medical History Pertinent Past Medical History: Yes Neurological History: Peripheral Neuropathy ENT History: No Pertinent History Cardiac History: Hypertension Respiratory History: No Pertinent History Endocrine Medical History: No Pertinent History Musculoskeletal History: Osteoarthritis GI Medical History: GERD History: No Pertinent History Psycho-Social History: No Pertinent History Male Reproductive Disorders: No Pertinent History Other Medical History: R JOSE DANIEL, HEART ISSUES, HAD HEART SHOCKED BACK INTO RYTHM. - Past Surgical History Past Surgical History: Yes Neuro Surgical History: No Pertinent History Cardiac: Other Respiratory: No Pertinent History Gastrointestinal: Cholecystectomy Genitourinary: No Pertinent History Musculoskeletal: Orthopedic Surgery Male Surgical History: No Pertinent History Other Surgical History: right hip, cardioversion - Social History Smoking Status: Former smoker Exposure to second hand smoke: No Drug Use: none Patient Lives Alone: No - Nursing Vital Signs Nursing Vital Signs: Initial Vital Signs Pulse Rate 61 08/29/23 14:27 Respiratory Rate 20 08/29/23 14:27 Blood Pressure 175/86 08/29/23 14:27 O2 Sat by Pulse Oximetry 92 L 08/29/23 14:27 Pain Scale Pain Intensity 0 - [place] Coma Scale Best Eye Response (Starla): (4) open spontaneously Best Verbal Response (Starla): (5) oriented Best Motor Response (Starla): (6) obeys commands [place] Total: 15 - Physical Exam General Appearance: no apparent distress, alert, anxiety Eye Exam: bilateral eye: normal inspection, PERRL, EOMI Ears, Nose, Throat Exam: normal ENT inspection, moist mucous membranes Neck Exam: normal inspection, non-tender, supple, full range of motion Respiratory: normal breath sounds, lungs clear, airway intact, No chest tenderness, No respiratory distress Cardiovascular: regular rate/rhythm, normal heart sounds, normal peripheral pulses Gastrointestinal: soft, normal bowel sounds, No tenderness Rectal Exam: not done Back Exam: normal inspection, normal range of motion, No CVA tenderness, No vertebral tenderness Extremity Exam: normal inspection, normal range of motion, pelvis stable Mental Status: alert, oriented x 3, 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 Exam: normal hearing, normal speech, PERRL Coordination/Gait: normal finger to nose, normal gait, normal cerebellar function Motor/Sensory: no motor deficit, no sensory deficit Skin Exam: normal color, warm, dry SpO2 Interpretation: normal O2 Delivery: Room Air - Course Nursing assessment & vital signs reviewed: Yes EKG Interpreted by Me: RATE (59), Sinus Rhythm, Left [place] Deviation, NORMAL INTERVALS, NORMAL QRS, Other (Acute ischemic changes on today's twelve-lead EKG.) Ordered Tests: Active Orders 24 hr Category Date Time Status Transitional Living Specialist STAT Care 08/29/23 15:12 Active EKG-ER Only STAT Care 08/29/23 15:12 Active IV Insertion STAT Care 08/29/23 15:12 Active HEAD WITHOUT CONTRAST [CT] Stat Exams 08/29/23 15:12 Ordered CBC W DIFF Stat Lab 08/29/23 15:00 Completed CMP Stat Lab 08/29/23 15:00 Completed MAGNESIUM Stat Lab 08/29/23 15:00 Completed TROPONIN Q4H Lab 08/29/23 15:00 Completed TROPONIN Q4H Lab 08/29/23 19:15 Ordered TROPONIN Q4H Lab 08/29/23 23:15 Ordered UA W/RFX UR CULTURE Stat Lab 08/29/23 15:32 Completed Medication Summary Generic Name Dose Route Start Last Admin Trade Name Freq PRN Reason Stop Dose Admin Sodium Chloride 1,000 mls @ 100 mls/hr 08/29/23 15:15 08/29/23 15:28 Sodium Chloride 0.9% 1000 Ml IV 09/28/23 15:14 100 mls/hr .Q10H LUCILA Administration Lab/Rad Data: Laboratory Result Diagrams 08/29/23 15:00 08/29/23 15:00 Laboratory Results 08/29/23 08/29/23 08/29/23 Range/Units 15:32 15:00 15:00 WBC (4.0-10.5) x10^3/uL RBC (4.1-5.6) x10^6/uL Hgb (12.5-18.0) g/dL Hct (42-50) % MCV (78-100) fL MCH (26-32) pg MCHC (32-36) g/dL RDW (11.5-14.0) % Plt Count (150-450) x10^3/uL MPV (7.5-11.0) fL Gran % (36.0-66.0) % Immature Gran % (Auto) (0.00-0.4) % Nucleat RBC Rel Count (0.00-0.1) % Eos # (Auto) (0-0.5) x10^3/uL Immature Gran # (Auto) (0.00-0.03) x10^3u/L Absolute Lymphs (auto) (1.0-4.6) x10^3/uL Absolute Monos (auto) (0.0-1.3) x10^3/uL Absolute Nucleated RBC (0.00-0.01) x10^3u/L Lymphocytes % (24.0-44.0) % Monocytes % (0.0-12.0) % Eosinophils % (0.00-5.0) % Basophils % (0.0-0.4) % Absolute Granulocytes (1.4-6.9) x10^3/uL Basophils # (0-0.4) x10^3/uL Sodium 140 (135-145) mmol/L Potassium 3.8 (3.5-5.1) mmol/L Chloride 109 H (98-107) mmol/L Carbon Dioxide 21 L (22-30) mmol/L Anion Gap 13.6 (5-15) MEQ/L BUN 12 (9-20) mg/dL Creatinine 1.05 (0.66-1.25) mg/dL Estimated GFR 75.0 ML/MIN Glucose 104 (74-106) mg/dL Calcium 9.0 (8.4-10.2) mg/dL Magnesium 1.9 (1.6-2.3) mg/dL Total Bilirubin 0.70 (0.2-1.3) mg/dL AST 24 (17-59) U/L ALT 14 (0-50) U/L Alkaline Phosphatase 80 (38-126) U/L Troponin I < 0.012 (0.000-0.033) ng/mL Serum Total Protein 7.0 (6.3-8.2) g/dL Albumin 4.0 (3.5-5.0) g/dL Urine Color Yellow (Yellow) Urine Appearance Clear (Clear) Urine pH 7.0 (4.6-8.0) Ur Specific [place] <=1.005 (1.005-1.030) Urine Protein Negative (Negative) Urine Glucose (UA) Negative (Negative) mg/dL Urine Ketones Negative (Negative) Urine Blood Negative (Negative) Urine Nitrite Negative (Negative) Urine Bilirubin Negative (Negative) Urine Urobilinogen 0.2 (0.2) mg/dL Ur Leukocyte Esterase Negative (Negative) U Hyaline Cast (Auto) NONE SEEN (0-2) /LPF Urine Microscopic RBC 0-2 (0-5) /HPF Urine Microscopic WBC 0-2 (0-5) /HPF Ur Epithelial Cells None Seen (None Seen) /HPF Urine Bacteria None Seen (None Seen) /HPF Urine Culture Reflexed NO (NO) 08/29/23 Range/Units 15:00 WBC 6.6 (4.0-10.5) x10^3/uL RBC 5.85 H (4.1-5.6) x10^6/uL Hgb 16.8 (12.5-18.0) g/dL Hct 51.8 H (42-50) % MCV 88.5 (78-100) fL MCH 28.7 (26-32) pg MCHC 32.4 (32-36) g/dL RDW 13.7 (11.5-14.0) % Plt Count 168 (150-450) x10^3/uL MPV 9.2 (7.5-11.0) fL Gran % 66.8 H (36.0-66.0) % Immature Gran % (Auto) 0.3 (0.00-0.4) % Nucleat RBC Rel Count 0.0 (0.00-0.1) % Eos # (Auto) 0.13 (0-0.5) x10^3/uL Immature Gran # (Auto) 0.02 (0.00-0.03) x10^3u/L Absolute Lymphs (auto) 1.34 (1.0-4.6) x10^3/uL Absolute Monos (auto) 0.63 (0.0-1.3) x10^3/uL Absolute Nucleated RBC 0.00 (0.00-0.01) x10^3u/L Lymphocytes % 20.5 L (24.0-44.0) % Monocytes % 9.6 (0.0-12.0) % Eosinophils % 2.0 (0.00-5.0) % Basophils % 0.8 (0.0-0.4) % Absolute Granulocytes 4.38 (1.4-6.9) x10^3/uL Basophils # 0.05 (0-0.4) x10^3/uL Sodium (135-145) mmol/L Potassium (3.5-5.1) mmol/L Chloride (98-107) mmol/L Carbon Dioxide (22-30) mmol/L Anion Gap (5-15) MEQ/L BUN (9-20) mg/dL Creatinine (0.66-1.25) mg/dL Estimated GFR ML/MIN Glucose (74-106) mg/dL Calcium (8.4-10.2) mg/dL Magnesium (1.6-2.3) mg/dL Total Bilirubin (0.2-1.3) mg/dL AST (17-59) U/L ALT (0-50) U/L Alkaline Phosphatase (38-126) U/L Troponin I (0.000-0.033) ng/mL Serum Total Protein (6.3-8.2) g/dL Albumin (3.5-5.0) g/dL Urine Color (Yellow) Urine Appearance (Clear) Urine pH (4.6-8.0) Ur Specific [place] (1.005-1.030) Urine Protein (Negative) Urine Glucose (UA) (Negative) mg/dL Urine Ketones (Negative) Urine Blood (Negative) Urine Nitrite (Negative) Urine Bilirubin (Negative) Urine Urobilinogen (0.2) mg/dL Ur Leukocyte Esterase (Negative) U Hyaline Cast (Auto) (0-2) /LPF Urine Microscopic RBC (0-5) /HPF Urine Microscopic WBC (0-5) /HPF Ur Epithelial Cells (None Seen) /HPF Urine Bacteria (None Seen) /HPF Urine Culture Reflexed (NO) - Progress Progress: improved, re-examined Progress Note: 08/29/23 17:23 Medical decision making and the assignment of moderate complexity to this patient's medical issue today is based on review of the patient's past medical history, review of the patient's medication list, review the patient drug allergy list, history present illness and physical findings on examination. The workup includes CT scan of the head, infusion of normal saline solution, intravenous line placement, CBC, CMP, troponin level, and urinalysis. Differential diagnosis includes intracranial abnormality such as CVA or TIA, dehydration, urinary tract infection, electrolyte abnormalities, medication side effect CT scan of the head was interpreted by the radiologist and I reviewed the impression. The impression states mild age-related atrophic changes. There are atherosclerotic changes of the intracranial vessels. There are no acute int racranial abnormalities Counseled pt/family regarding: lab results, diagnosis, need for follow-up, rad results Medical Desision Making - Diagnostic Testing Diagnostic test were ordered, analyzed, and reviewed by me: Yes Radiological Interpretation: Reviewed by me, Teleradiologist Report - Risk of complications Low Risk: Low risk of morbidity from additional dx testing or treatment - Departure Departure Disposition: Home Clinical Impression: Dizziness after extension of neck Condition: Stable Critical Care Time: No Referrals: DEENA HERNANDEZ [Primary Care Provider] - Follow up/PCP as directed Additional Instructions: Drink plenty of fluids. Take your medication as prescribed. If you prefer, you may hold the Diflucan and discussed with Dr. Hernandez in the morning of 08/31/2023 for further instructions and to obtain a follow-up appointment in the next 3 to 5 days.
[2023-08-29] MEDS ORDERED: Sodium Chloride 0.9% 1000 ML 1,000 ML ONE (15:26)
[2023-08-29] MEDS: Sodium Chloride 0.9% 1000 ML 1,000 ML IV SCH (15:28)
[2023-08-29 15:35] LABS: Absolute Neutrophil Ct (ANC) 4.38 x10^3/uL (1.4-6.9); BASOPHIL % 0.8 % (0.0-0.4); Basophil (Absolute #) 0.05 x10^3/uL (0-0.4); Eosinophil (Absolute #) 0.13 x10^3/uL (0-0.5); Hematocrit 51.8 % (42-50); Hemoglobin 16.8 g/dL (12.5-18.0); IMMATURE GRAN # 0.02 x10^3u/L (0.00-0.03); IMMATURE GRAN % 0.3 % (0.00-0.4); Lymphocyte (Absolute #) 1.34 x10^3/uL (1.0-4.6); Lymphocytes % 20.5 % (24.0-44.0); Mean Cell Volume 88.5 fL (78-100); Mean Corpuscular Hemoglobin 28.7 pg (26-32); Mean Corpuscular Hgb Concent. 32.4 g/dL (32-36); Mean Platelet Volume 9.2 fL (7.5-11.0); Monocyte (Absolute #) 0.63 x10^3/uL (0.0-1.3); Monocytes % 9.6 % (0.0-12.0); Neutrophil % 66.8 % (36.0-66.0); Platelet Count 168 x10^3/uL (150-450); Red Blood Count 5.85 x10^6/uL (4.1-5.6); Red Cell Distribution Width 13.7 % (11.5-14.0); White Blood Count 6.6 x10^3/uL (4.0-10.5)
[2023-08-29 15:44] LABS: Appearance Clear (Clear); Bacteria None Seen /HPF (None Seen); Bilirubin Negative (Negative); Blood Negative (Negative); Epithelial Cells None Seen /HPF (None Seen); Glucose, Urine Negative (Negative); Hyaline Casts NONE SEEN /LPF (0-2); Ketones Negative (Negative); Leukocyte Esterase Negative (Negative); Nitrite Negative (Negative); Protein,Urine Dip Negative (Negative); RBC 0-2 /HPF (0-5); Specific Gravity <=1.005 (1.005-1.030); Urobilinogen 0.2 mg/dL (0.2); WBC 0-2 /HPF (0-5)
[2023-08-29 15:47] LABS: ADD URINE CULTURE? NO (NO)
[2023-08-29 16:12] LABS: ANION GAP 13.6 MEQ/L (5-15); BILIRUBIN,TOTAL 0.7 mg/dL (0.2-1.3); Creatinine 1 1.05 mg/dL (0.66-1.25); MAGNESIUM 1.9 mg/dL (1.6-2.3); Potassium 3.8 mmol/L (3.5-5.1)
[2023-08-29 17:11] VITALS: O2SAT 95
[2023-08-29 17:28] VITALS: BP 155/72; PULSE 56; RESP 16
--- NOTE | 2023-08-31 09:12 | XRAY ---
CLINICAL HISTORY: Dizziness COMPARISON: None. TECHNIQUE: Axial contrast non enhanced CT scan of the brain was performed from the skull base to the high parietal region. One of the following dose reduction techniques were utilized for this exam: Automated exposure control, adjustment of the mA and/or kV according to patient size, and use of iterative reconstruction. FINDINGS: The visualized brain parenchyma shows prominent cortical sulci predominantetly in bilateral frontal regions and to lesser extent along the basal cisterns in keeping with age related brain changes , otherwise it showed normal appearance. Atherosclerotc changes of the intracranial vessels with calcified atheromas noted in the cavernous part of internal carotid areteries No focal parenchymal abnormalities are demonstrated. Rousseau-white matter differentiation is maintained. No midline shifts or deformity. No intracerebral or extra axial hematoma. Normal size and configuration of the cerebral ventricles. Normal CT appearance of the posterior fossa structures namely the cerebellar hemispheres, brainstem and cerebellar peduncles apart from mild atrophic changes. The IACs are unremarkable. The cerebello-pontine angles are clear. The pituitary gland, the pineal gland, the optic chiasm is unremarkable. The osseous structures in the skull base are unremarkable. No definite calvarium fractures. Scanned paranasal sinuses are clear, deviation of the nasal septum to the left side. No abnormal contrast enhancement seen. IMPRESSION: 1. Mild age related atrophic changes. 2. Atherosclerotic changes of intrcranial vessles with calcified atheromas of the cavernous part of internal carotid arteries , otherwise unremarkable of non contrast CT study for the brain. 3. No acute intracranial abnormality. 4. Early changes of acute ischemic infarct may sometimes not be detected on a CT scan. If clinically needed, MRI with diffusion-weighted imaging is recommended for further evaluation. Electronically Signed by: Angela Ogden MD. (08/29/2023 16:28:30 EDT)
== END 2023-08-29 17:32 | disposition home or self-care (01) ==
LOC: ED 14:27
DX: R42 Dizziness and giddiness (principal); E78.5 Hyperlipidemia, unspecified; I10 Essential (primary) hypertension; Z79.01 Long term (current) use of anticoagulants; Z79.899 Other long term (current) drug therapy
CPT/HCPCS: 36000; 36415; 70450; 80053; 81001; 83735; 84484; 85025; 93005; 93041; 96360; 99284